=== PATIENT | female | born 1990 | race Two or more races ===

== ENCOUNTER 2022-09-23 23:59 | Emergency (ER) | payer OTHER ==
[~2022-09-23] VITALS: Ht 165.1 cm; Wt 77.7 kg
[2022-09-24 00:22] LABS: Basophils # (auto) 0.1 10 ^3/uL (0-0.2); Eosinophils # (auto) 0.2 10 ^3/uL (0-0.8); Hemoglobin 11.7 g/dL (12.2-16.2); Monocytes # (auto) 0.5 10 ^3/uL (0-1.3); Neutrophils # (auto) 3.4 10 ^3/uL (1.6-8.6); White Blood Cell 6.6 10^3/uL (4.4-10.8)
[2022-09-24 00:24] LABS: Eosinophils % (auto) 2.6 % (0.0-7.0); Lymphocytes # (auto) 2.5 10 ^3/uL (0.4-5.4); Lymphocytes % (auto) 37.7 % (10.0-50.0); Mean Corpuscular Hemoglobin 21.8 pg (28.0-32.0); Mean Corpuscular Hgb Conc. 31.6 g/dL (32.0-36.0); Mean Corpuscular Volume 69.2 fL (80.0-100.0); Monocytes % (auto) 7.7 % (0.0-12.0); Red Blood Cells 5.35 10^6/uL (4.0-5.20); Red Cell Distribution Width 14.9 % (11.8-14.3)
[2022-09-24 00:40] LABS: Albumin 3.7 g/dL (3.4-5.0); BUN/Creatinine Ratio 18.8; Calcium 8.8 mg/dL (8.5-10.1); Potassium 3.6 mmol/L (3.5-5.1)
[2022-09-24 00:42] LABS: Bilirubin, Total 0.3 mg/dL (0.2-1.0)
[2022-09-24 01:46] LABS: Magnesium 2.3 mg/dL (1.6-2.6)
[2022-09-24 03:52] LABS: Urine Bacteria NONE SEEN /hpf (None Seen); Urine Blood Negative /uL (Negative); Urine Mucus FEW (None Seen); Urine Specific Gravity 1.023 (1.001-1.035); Urine WBC 3 /hpf (0 - 5)
[2022-09-24] MEDS ORDERED: IOHEXOL 350 MG/ML 100ML IJ ONE (03:52)
[2022-09-24 03:53] LABS: Alcohol, Urine < 3.0 mg/dL (0-10); Amphetamine Screen, Urine NEGATIVE (NEGATIVE); Barbiturate Scree,Urine NEGATIVE (NEGATIVE); Benzodiazephine Screen, Urine NEGATIVE (NEGATIVE); Cannabinoid Screen, Urine NEGATIVE (NEGATIVE); Cocaine Screen, Urine NEGATIVE (NEGATIVE); Opiate Scree,Urine NEGATIVE (NEGATIVE); Phencyclidine Screen, Urine NEGATIVE (NEGATIVE)
[2022-09-24 04:00] VITALS: BP 103/65
== END 2022-09-24 06:14 | disposition home or self-care (01) ==
LOC: ER 23:59
DX: R07.89 Other chest pain (principal); R20.0 Anesthesia of skin; R42 Dizziness and giddiness; Z79.899 Other long term (current) drug therapy; Z20.822 Contact with and (suspected) exposure to COVID-19
CPT/HCPCS: 36415; 71045; 74177; 80053; 80307; 81001; 82550; 83735; 84484; 84702; 85025; 85379; 87426; 87804; 93005; 99285; Q9967